=== PATIENT | female | born 1950 | race Caucasian/White ===

== ENCOUNTER 2021-04-05 10:46 | Outpatient (CLI) | payer MEDICARE | END 2021-04-05 10:47 | disposition home or self-care (01) | LOC: BURRAD 10:46 | PROVIDERS: ATTEND Family Medicine | DX: M54.42 Lumbago with sciatica, left side (principal); M47.816 Spondylosis without myelopathy or radiculopathy, lumbar region | CPT/HCPCS: 72100 ==